=== PATIENT | male | born 1995 | race Hispanic/Latino ===

== ENCOUNTER 2017-03-06 09:12 | Emergency (ER) | payer OTHER ==
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
[2017-03-06 10:24] VITALS: TEMP 98.3; O2SAT 100
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
[2017-03-06 11:50] VITALS: BP 121/75; PULSE 62; RESP 16
== END 2017-03-06 11:55 | disposition home or self-care (01) ==
LOC: ED 09:12
DX: S09.90XA Unspecified injury of head, initial encounter (principal); V49.9XXA Car occupant (driver) (passenger) injured in unspecified traffic accident, initial encounter